=== PATIENT | female | born 1985 | race Caucasian/White ===

== ENCOUNTER → 2016-08-14 | Outpatient (CLI) | payer OTHER ==
--- NOTE | 2016-08-14 14:58 | MAM ---
EXAM DESCRIPTION: MAMMO BREAST DIAGNOSTIC BILATERAL; US BREAST BILATERAL Images were reviewed with R2 computer-aided detection. CLINICAL HISTORY: Right axillary mass. No significant family history. COMPARISON: Baseline study. FINDINGS: Routine and Shayla views are obtained. Patient has mammographically benign appearing bilateral subpectoral implants. Glandular tissue is heterogeneously dense and nodular in contour. No mammographic abnormality is seen corresponding to the region of clinical concern, right axillary soft tissue and upper-outer breast. Focal nodular asymmetry is shown in the left breast at 2 o'clock approximately 4 cm from the nipple. No microcalcifications or architectural distortion. Directed ultrasound examination in the region of clinical concern demonstrates a ridge of normal fibroglandular tissue. On the contralateral breast, a ridge of normal fibroglandular tissue is also shown. There is no sonographically suspicious finding. IMPRESSION: Benign exam BIRAD CATEGORY: 2 BENIGN RECOMMENDATION: FOLLOW-UP: Screening mammography according to [employer] guidelines. Repeat baseline exam sometime between age 35 and 40. Findings and recommendations were communicated to the patient by the technologist. According to the [employer], yearly mammograms are recommended starting at age 40 and continuing as long as a woman is in good health. Any breast change noted on a breast self-exam should be reported promptly to the patient's healthcare provider. Breast MRI is recommended for women with an approximately 20-25% or greater lifetime risk of breast cancer, including women with a strong family history of breast or ovarian cancer and women who have been treated for Hodgkin's disease. Electronically signed by: Lisa Fleming 08/14/2016 14:57
== END ==
LOC: MAMMO 11:43
PROVIDERS: ATTEND Family Medicine
DX: N63 Unspecified lump in breast (principal)
CPT/HCPCS: 76641; 77051; G0204

== ENCOUNTER 2016-11-11 14:43 | Emergency (ER) | payer OTHER ==
[2016-11-11 14:57] VITALS: TEMP 97.1
--- NOTE | 2016-11-11 15:10 | ED.PDOC ---
History of Present Illness - General Chief Complaint: Headache Stated Complaint: migraine Time Seen by Provider: 11/11/16 15:02 Source: patient Exam Limitations: no limitations - History of Present Illness Timing/Duration: 1-3 hours Quality: severe, achy, constant, stabbing, other - left hemicrania Head Injury Location: parietal - left Recent Head Trauma: chronic headaches - history of migraine headache since 10 y/ o Improving Factors: nothing Worsening Factors: nothing Associated Symptoms: other - photophobia Allergies/Adverse Reactions: Allergies NO KNOWN ALLERGY Allergy (Verified 11/11/16 14:57) Home Medications: Ambulatory Orders Esqssumlbkrfy-Krec-Tymhckmphk [Fioricet] 1 tab PO PRN 11/11/16 Amphetamine-Dextroamphetamine [Adderall] 1 tab PO DAILY 11/11/16 Prochlorperazine Tab [Compazine Tab] 10 mg PO TID #10 tab 11/11/16 predniSONE [Prednisone] 20 mg PO DAILY #7 tab 11/11/16 Review of Systems - Review of Systems Constitutional: States: no symptoms reported EENTM: States: no symptoms reported Respiratory: States: no symptoms reported Cardiology: States: no symptoms reported Gastrointestinal/Abdominal: States: no symptoms reported Genitourinary: States: no symptoms reported Musculoskeletal: States: no symptoms reported Skin: States: no symptoms reported Neurological: States: see HPI Endocrine: States: no symptoms reported Hematologic/Lymphatic: States: no symptoms reported Past Medical History (General) - Patient Medical History Hx Congestive Heart Failure: No Hx Diabetes: No Hx Other PMH: Yes - migraines Hx Other - free text: ADD Surgical History: other - hysterectomy - Vaccination History Hx Influenza Vaccination: No - Social History Hx Tobacco Use: Yes - Activities of Daily Living Patient Lives Alone: No - family - Female History Patient is a Female of Child Bearing Age (10 -59 yrs old): No - hysterectomy Family Medical History - Family History Mother Family History: Unknown Living Status: Unknown Hx Family;Other: migraine headache multiple family members Physical Exam - Physical Exam General Appearance: Alert, Anxious, No apparent distress Eyes, Ears, Nose, Throat Exam: PERRL/EOMI, normal ENT inspection, TMs normal, pharynx normal Neck: non-tender, full range of motion, supple Cardiovascular/Chest: normal peripheral pulses, regular rate, rhythm, no edema, no gallop, no JVD, no murmur Respiratory: chest non-tender, lungs clear, normal breath sounds, no respiratory distress Gastrointestinal/Abdominal: normal bowel sounds, non tender, soft, no organomegaly Back Exam: normal inspection, no CVA tenderness, no vertebral tenderness Extremity: normal range of motion, non-tender, normal inspection 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, 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: normal hearing, normal speech, PERRL Coordination/Gait: normal gait Motor/Sensory: no motor deficit, no sensory deficit, no pronator drift Skin Exam: warm/dry, normal color Lymphatic: no adenopathy Progress - Results/Orders Results/Orders: slightly better after toradol,decadron,and reglan iv injection - EKG/XRAY/CT CT Ordered: Yes - no acute abnormality noted Departure - Departure Clinical Impression: Migraine Qualifiers: Migraine type: chronic without aura Status migrainosus presence: without status migrainosus Intractability: not intractable Qualified Code(s): G43.709 - Chronic migraine without aura, not intractable, without status migrainosus Time of Disposition: 15:55 Disposition: Discharge to Home or Self Care Condition: Good Departure Forms: ED Discharge - Pt. Copy, Patient Portal Self Enrollment Instructions: Migraine Headaches (Alternative Therapy), Migraine -- Adult, DI for Migraine Referrals: Lance Oilvo III, MD [Primary Care Provider] - 1-2 Weeks Prescriptions: predniSONE [Prednisone] 20 mg PO DAILY #7 tab Prochlorperazine Tab [Compazine Tab] 10 mg PO TID #10 tab Home Medications: Ambulatory Orders Obhbdfxeumudq-Scdo-Ljjwenyzso [Fioricet] 1 tab PO PRN 11/11/16 Amphetamine-Dextroamphetamine [Adderall] 1 tab PO DAILY 11/11/16 Prochlorperazine Tab [Compazine Tab] 10 mg PO TID #10 tab 11/11/16 predniSONE [Prednisone] 20 mg PO DAILY #7 tab 11/11/16
[2016-11-11] MEDS ORDERED: DEXAMETHASONE INJ 4 MG/ML VIAL IV ONE (15:12)
[2016-11-11] MEDS ORDERED: METOCLOPRAMIDE HCL INJ 10 MG/2 ML VIAL IV ONE (15:12)
[2016-11-11] MEDS ORDERED: KETOROLAC TROMETHAMINE INJ 30 MG/ML VIAL IV ONE (15:12)
[2016-11-11] MEDS ORDERED: SODIUM CHLORIDE 0.9% 1000ML 1,000 ML IVS ONE (15:13)
--- NOTE | 2016-11-11 15:43 | CT ---
Study: CT of the Head. Indication: headache Technique: Axial CT images of the head were acquired without intravenous contrast. This exam was performed according to our departmental dose-optimization program, which includes automated exposure control, adjustment of the mA and/or kV according to patient size and/or use of iterative reconstruction technique. Comparison: None. Findings: No CT evidence of acute ischemia, acute hemorrhage, mass, mass effect, midline shift, or extra-axial fluid collection. Ventricles are normal in configuration without hydrocephalus. Brain parenchyma demonstrates a normal appearance for patient age. Paranasal sinuses are adequately aerated. Mastoid air cells are adequately aerated. Osseous structures and soft tissues are unremarkable. Impression: 1. No CT evidence of acute intracranial abnormality. Electronically signed by: Amado Farias MD 11/11/2016 3:42 PM CDT
[2016-11-11] MEDS ORDERED: HYDROcodone 10MG/APAP 325MG 1 EA TAB PO ONE (15:51)
[2016-11-11 16:20] VITALS: BP 106/65; O2SAT 96
== END 2016-11-11 16:10 | disposition home or self-care (01) ==
LOC: ER 14:43
DX: G43.709 Chronic migraine without aura, not intractable, without status migrainosus (principal)
CPT/HCPCS: 70450; J1100; J1885; J2765; J7030

== ENCOUNTER → 2020-04-24 | Outpatient (CLI) | payer BC | LOC: GMAL 17:14 | PROVIDERS: ATTEND Family Medicine | DX: D51.3 Other dietary vitamin B12 deficiency anemia (principal); R53.83 Other fatigue; E55.9 Vitamin D deficiency, unspecified ==

== ENCOUNTER → 2020-05-10 | Outpatient (CLI) | payer BC ==
--- NOTE | 2020-05-14 09:16 | MAM ---
EXAM DESCRIPTION: 3D Diagnostic, Bilateral (accession [id number]), Breast,Bilateral (accession [id number]): Ultrasound CLINICAL HISTORY: 34 yearsFemaleUNSPECIF. LUMP IN THE LEFT BREAST. Patient also feels lump in the upper outer quadrant right breast. Breast implants have been removed since the prior study. Remote family history of breast cancer. Menarche age 10. Childbirth age 15. Menopause age 20. No HRT. Lifetime risk of developing breast cancer (Tyrer-Cuzick model)(%): 7.5. COMPARISON: Bilateral screening digital 2-D mammography with Shayla implant displacement technique July 2016. TECHNIQUE: Bilateral LM, CC, and MLO projection full-field images, digital tomosynthesis technique. Bilateral 2-D digital full-field images: LM, CC, and MLO projections. 2 view digital spot magnification region of interest upper outer quadrant right breast. CAD available for 2-D images.. Transcutaneous scanning of the bilateral breasts utilizing geronimo-scale and Doppler modes. Scanning performed by the molding utility worker ; observation by Dr. Fowler. FINDINGS: The breast parenchymal density pattern is: Heterogeneously dense breast tissue, which may obscure small masses. No skin thickening or nipple retraction triangular skin marker upper outer quadrant middle third right breast, indicating palpable site by patient. Similar to site of probable breast tissue on the previous study. Group of microcalcifications in the adjacent dense breast tissue. Triangular skin marker at site of palpable abnormality in the axillary tail of the left breast. Increase in breast tissue density could represent accessory breast tissue, slightly less dense compared to the prior study. No residual implant material is seen in either breast. No new focal, stellate mass or density, focal asymmetry , and no suspicious microcalcifications left breast. Ultrasound: Scanning in the right breast at the region of interest upper outer quadrant middle and anterior third. Peripheral fatty tissue and predominantly fibroglandular tissue deep and extending to the chest wall. Also scanning 12:00 4 cm from the nipple. No dominant solid mass, no distinct cyst, no fluid collection, and no large calcifications. No overlying skin changes. Scanning left breast in the axilla and axillary tail at the region of interest. Distribution of fatty and fibroglandular tissues similar to the right breast. No sonographic abnormalities. IMPRESSION: BI-RADS CATEGORY: 3 - PROBABLY BENIGN. RECOMMENDATIONS: FOLLOW-UP: Short interval (6-month) right breast region of interest digital diagnostic tomosynthesis/2-D examination and directed right breast ultrasound.. The FINDINGS and the FOLLOW-UP plan were reviewed in person with the patient after the examination. Written communication explaining the IMPRESSION and FOLLOW-UP will be mailed to the patient and referring care provider. Electronically signed by: Jose Armando Fowler MD 05/14/2020 9:14 AM CDT
== END ==
LOC: US 10:08
PROVIDERS: ATTEND Family Medicine
DX: N63.11 Unspecified lump in the right breast, upper outer quadrant (principal); N63.32 Unspecified lump in axillary tail of the left breast; R92.0 Mammographic microcalcification found on diagnostic imaging of breast; R00.0 Tachycardia, unspecified
CPT/HCPCS: 76641; 77066; 93229; G0279